=== PATIENT | female | born 1975 | race Caucasian/White ===

== ENCOUNTER 2017-08-16 10:52 | Emergency (ER) | payer BC ==
[2017-08-16] MEDS ORDERED: NAPROXEN 250 MG TABLET PO ONE (11:31)
--- NOTE | 2017-08-16 11:35 | ER Document Report ---
ED General - General Chief Complaint: Rib Pain Stated Complaint: RIGHT SIDE PAIN Time Seen by Provider: 08/16/17 11:28 Notes: The patient is a 41-year-old female, no past medical history, presents with 9 days of right lateral chest pain that is worse when she takes deep breaths and when she presses on the right lateral side of her chest. Patient denies hemoptysis, OCP use, leg swelling, nausea, vomiting, cough, back pain, rib injury or fall. TRAVEL OUTSIDE OF THE [place] IN LAST 30 DAYS: No - Related Data Allergies/Adverse Reactions: No Known Allergies Allergy (Unverified 08/16/17 10:53) Past Medical History - General Information source: Patient - Social History Smoking Status: Current Every Day Smoker Chew tobacco use (# tins/day): No Frequency of alcohol use: None Drug Abuse: None Family History: Reviewed & Not Pertinent Patient has suicidal ideation: No Patient has homicidal ideation: No Renal/ Medical History: Denies: Hx Peritoneal Dialysis Review of Systems - Review of Systems Notes: REVIEW OF SYSTEMS: CONSTITUTIONAL: -fevers, -chills EENT: -eye pain, -difficulty swallowing, -nasal congestion CARDIOVASCULAR: +chest pain, -syncope. RESPIRATORY: -cough, -SOB GASTROINTESTINAL: -abdominal pain, -nausea, -vomiting, -diarrhea GENITOURINARY: -dysuria, -hematuria MUSCULOSKELETAL: -back pain, -neck pain SKIN: -rash or skin lesions. HEMATOLOGIC: -easy bruising or bleeding. LYMPHATIC: -swollen, enlarged glands. NEUROLOGICAL: -altered mental status or loss of consciousness, -headache, - neurologic symptoms PSYCHIATRIC: -anxiety, -depression. ALL OTHER SYSTEMS REVIEWED AND NEGATIVE. Physical Exam - Vital signs Vitals: Temp Pulse Resp BP Pulse Ox 98.9 F 111 H 13 140/88 H 99 08/16/17 10:56 08/16/17 10:56 08/16/17 10:56 08/16/17 10:56 08/16/17 10:56 - Notes Notes: PHYSICAL EXAMINATION: GENERAL: Well-appearing, well-nourished and in no acute distress. HEAD: Atraumatic, normocephalic. EYES: Pupils equal round and reactive to light, extraocular movements intact, sclera anicteric, conjunctiva are normal. ENT: nares patent, oropharynx clear without exudates. Moist mucous membranes. NECK: Normal range of motion, supple without lymphadenopathy LUNGS: No breath sounds in right upper lobe. No respiratory distress. HEART: Regular rhythm, tachycardia. CHEST WALL: Tenderness over right lateral lower ribs, no step-offs or deformities ABDOMEN: Soft, nontender, normoactive bowel sounds. No guarding, no rebound. No masses appreciated. EXTREMITIES: Normal range of motion, no pitting or edema. No cyanosis. NEUROLOGICAL: Cranial nerves grossly intact. Normal speech, normal gait. Normal sensory and motor exams. PSYCH: Normal mood, normal affect. SKIN: Warm, Dry, normal turgor, no rashes or lesions noted. Course - Re-evaluation Re-evalutation: Patient is low risk for PE, but unable to PERC out due to her tachycardia. Will send d-dimer. D-dimer elevated and large right upper lung mass on CXR. CTA ordered. 08/16/17 13:25 Patient with a lung abscess or necrotic neoplasm on CTA Chest. Suspect a neoplasm with her smoking history and absence of fevers or leukocytosis. Pt will be moved to the main ER from [facility] for further evaluation and treatment. I have greeted and performed a rapid initial assessment of this patient. A comprehensive ED assessment and evaluation of the patient, analysis of test results and completion of the medical decision making process will be conducted by additional ED providers. - Vital Signs Vital signs: Temp Pulse Resp BP Pulse Ox 98.9 F 111 H 13 140/88 H 99 08/16/17 10:56 08/16/17 10:56 08/16/17 10:56 08/16/17 10:56 08/16/17 10:56 - Laboratory Result Diagrams: 08/16/17 11:45 08/16/17 11:45 Laboratory results interpreted by me: 08/16/17 08/16/17 08/16/17 11:45 11:45 11:45 Hgb 9.6 L Hct 30.3 L MCV 70 L MCH 22.0 L MCHC 31.5 L RDW 19.9 H Plt Count 620 H D-Dimer 2.00 H Sodium 145.2 H Total Bilirubin < 0.1 L AST 11 L - Diagnostic Test Radiology reviewed: Image reviewed, Reports reviewed Radiology results interpreted by me: CTA Chest: Large right hilar mass as noted above with mediastinal and subcarinal extension. There is atelectasis of right upper lobe. A 1.8 cm in diameter relative low density area is identified within the airspace consolidation in the right upper lobe which could be related to a lung abscess or necrotic lung neoplasm. A small right pleural effusion is identified. Hepatic and right adrenal metastatic disease as noted above. Other findings as noted above.
[2017-08-16 12:01] LABS: ABSOLUTE BASOPHILS # (AUTO) 0.1 10^3/uL (0.0-0.2); ABSOLUTE EOSINOPHILS # (AUTO) 0.2 10^3/uL (0.0-0.6); ABSOLUTE LYMPHOCYTES (AUTO) 1.9 10^3/uL (0.5-4.7); ABSOLUTE MONOCYTES (AUTO) 0.4 10^3/uL (0.1-1.4); ABSOLUTE NEUT (AUTO) 4.7 10^3/uL (1.7-8.2); BASOPHILS % (AUTO) 1.7 % (0-2); EOSINOPHILS % (AUTO) 2.9 % (0-6); HEMATOCRIT 30.3 % (36.0-47.0); HEMOGLOBIN 9.6 g/dL (12.0-15.5); LYMPHOCYTES % (AUTO) 25.8 % (13-45); MEAN CORPUSCULAR HGB CONC 31.5 g/dL (32.0-36.0); MEAN CORPUSCULAR VOLUME 70 fl (80-97); MONOCYTES % (AUTO) 5.8 % (3-13); PLATELET COUNT 620 10^3/uL (150-450); RED BLOOD COUNT 4.34 10^6/uL (3.72-5.28); RED CELL DISTRIBUTION WIDTH 19.9 % (11.5-14.0); SEGMENTED NEUTROPHILS % (AUTO) 63.8 % (42-78); TOTAL CELLS COUNTED % (AUTO) 100 %; WHITE BLOOD COUNT 7.4 10^3/uL (4.0-10.5)
[2017-08-16 12:20] LABS: ALANINE AMINOTRANSFERASE 15 U/L (9-52); ALBUMIN 3.5 g/dL (3.5-5.0); ALKALINE PHOSPHATASE 109 U/L (38-126); ANION GAP 13 (5-19); ASPARTATE AMINO TRANSFERASE 11 U/L (14-36); BLOOD UREA NITROGEN 12 mg/dL (7-20); CALCIUM 9.2 mg/dL (8.4-10.2); CARBON DIOXIDE 26 mmol/L (22-30); CHLORIDE 106 mmol/L (98-107); GLUCOSE 99 mg/dL (75-110); POTASSIUM 3.8 mmol/L (3.6-5.0); SODIUM 145.2 mmol/L (137-145); TOTAL PROTEIN 6.6 g/dL (6.3-8.2)
[2017-08-16 12:21] LABS: BILIRUBIN,TOTAL < 0.1 mg/dL (0.2-1.3)
--- NOTE | 2017-08-16 12:39 | RADIOLOGY REPORT (SQ) ---
EXAM DESCRIPTION: RIBS RIGHT W/PA CHEST COMPLETED DATE/TIME: 08/16/2017 12:17 pm REASON FOR STUDY: right rib tenderness COMPARISON: None. TECHNIQUE: Frontal view of the chest and additional views of the right ribs acquired. NUMBER OF VIEWS: PA chest, right rib detail three views LIMITATIONS: None. FINDINGS: PA chest film shows volume loss and consolidation throughout the right upper lobe with guerrero vation of the right minor fissure. There is fullness in the right upper hilum, worrisome for mass. Follow-up CT chest with IV contrast recommended. Remainder of the lungs are well inflated and free of focal infiltrates. No pleural effusion. No pne umothorax. Cardiac silhouette size, left hilum unremarkable. PA chest film and right rib detail films demonstrate no acute fractures of the right ribs or thoracic spine. No gross lytic or blastic lesions. IMPRESSION: Collapse and consolidation right upper lobe worrisome for obstructive right hilar or end obronchial mass. No right-sided rib fractures COMMENT: SITE OF TRAUMA/COMPLAINT MARKED/STAMP COMPLETED: Yes TECHNICAL DOCUMENTATION: JOB ID: [id number] [employer]- All Rights Reserved Reading location - IP/workstation name: [email or web address]
--- NOTE | 2017-08-16 13:15 | RADIOLOGY REPORT (SQ) ---
EXAM DESCRIPTION: CTA CHEST COMPLETED DATE/TIME: 08/16/2017 12:42 pm REASON FOR STUDY: SOB, tachycardia, elevated d-dimer, abnormal x-ray COMPARISON: Chest and right ribs dated 08/16/2017 TECHNIQUE: CT scan of the chest performed using helical scanning technique with dynamic intravenous contrast injection. Images reviewed with lung, soft tissue and bone windows. Reconstructed coronal and sagittal MPR images reviewed. Additional 3 dimensional post-processing performed to develop Maximal Intensity Projection images (IL P). All images stored on PACS. All CT scanners at this facility use dose modulation, iterative reconstruction, and/or weight based d osing when appropriate to reduce radiation dose to as low as reasonably achievable (ALARA). [facility]: Dose Right [facility]: CareDose [facility]: Dose Right [facility]: Teradose 4D [facility]: 24x7 Learning CONTRAST TYPE AND DOSE: contrast/concentration: Isovue 370.00 mg/ml; Total Contrast Delivered: 61.0 ml; Total Saline Delivered: 63.0 ml Contrast bolus optimized for the pulmonary arteries. Not diagnostic for the aorta. RENAL FUNCTION: None required. The patient is less than 50 years old. RADIATION DOSE: CT Rad equipment meets quality standard of care and radiation dose reduction techniq ues were employed. CTDIvol: 14.3 - 16.5 mGy. DLP: 578 mGy-cm. . LIMITATIONS: None. FINDINGS: LUNGS AND PLEURA: There is airspace consolidation in the right upper lobe most consistent with atelectasis of the right upper lobe related to a central obstructing mass. There is a 1.8 cm in diameter relative low density area within the airspace consolidation which could be related to a ann marie g abscess or necrotic lung neoplasm. A small right pleural effusion is identified. The left lung is clear and well expanded. AORTA AND GREAT VESSELS: No aneurysm. Contrast bolus not optimized for the aorta. HEART: No pericardial effusion. No significant coronary artery calcifications. PULMONARY ARTERIES: No emboli visualized in the main pulmonary arteries or the segmental branches. HILAR AND MEDIASTINAL STRUCTURES: A large right hilar mass is identified with loss of definition of t he right upper lobe bronchus consistent with extrinsic compression or invasion of the right upper lob e bronchus. There is constriction of the right main pulmonary artery consistent with extrinsic compr ession or invasion. The mass extends medially into the mediastinum and subcarinal region. HARDWARE: None in the chest. UPPER ABDOMEN: There is a large heterogeneous mass measuring 3.4 x 4.2 cm in diameters inseparable fr om the medial border of the right lobe of the liver in the expected position of the right adrenal gla nd presumably related to adrenal metastatic disease. There is some prominence of the left adrenal gl and. At least 2 somewhat ill-defined relative low density masses are identified in the right lobe of the liver with the largest measuring 3 cm in diameters consistent with metastatic disease. Couple s mall hepatic cysts are identified. THYROID AND OTHER SOFT TISSUES: No masses. No adenopathy. BONES: No acute or significant finding. 3D MIPS: Confirm above findings. OTHER: No other significant finding. IMPRESSION: Large right hilar mass as noted above with mediastinal and subcarinal extension. There is atelectasis of right upper lobe. A 1.8 cm in diameter relative low density area is identified wit hin the airspace consolidation in the right upper lobe which could be related to a lung abscess or ne crotic lung neoplasm. A small right pleural effusion is identified. Hepatic and right adrenal metas tatic disease as noted above. Other findings as noted above. COMMENT: Quality ID # [id number]: Final reports with documentation of one or more dose reduction techniques (e.g., Automated exposure control, adjustment of the mA and/or kV according to patient size, use of iterative reconstruction technique) TECHNICAL DOCUMENTATION: JOB ID: [id number] [employer]- All Rights Reserved Reading location - IP/workstation name: [email or web address]
[2017-08-16] MEDS ORDERED: CLINDAMYCIN 600 MG/D5W RTU 600 MG/50 ML RTUPB IV ONE (13:29)
[2017-08-16] MEDS ORDERED: PIPERACILLIN/TAZOBACTAM 3.375 GM VIAL IV ONE (13:54)
--- NOTE | 2017-08-16 14:00 | ER Document Report ---
ED Respiratory Problem - General Chief Complaint: Rib Pain Stated Complaint: RIGHT SIDE PAIN Time Seen by Provider: 08/16/17 11:28 Notes: 41-year-old female, no past medical history, presents with 9 days of right lateral chest pain that is worse when she takes deep breaths and when she presses on the right lateral side of her chest. Patient denies hemoptysis, OCP use, leg swelling, nausea, vomiting, cough, back pain, rib injury or fall. Patient denies any gland swelling night sweats or hemoptysis. Denies calf pain or leg swelling. Patient describes the pain is sharp and achy in the right side of her chest. She has never had this before. She is been a smoker almost a pack a day for the last 15 years. TRAVEL OUTSIDE OF THE [place] IN LAST 30 DAYS: No - Related Data Allergies/Adverse Reactions: No Known Allergies Allergy (Unverified 08/16/17 10:53) Past Medical History - General Information source: Patient - Social History Smoking Status: Current Every Day Smoker Chew tobacco use (# tins/day): No Frequency of alcohol use: None Drug Abuse: None Family History: Reviewed & Not Pertinent Patient has suicidal ideation: No Patient has homicidal ideation: No Renal/ Medical History: Denies: Hx Peritoneal Dialysis Review of Systems - Review of Systems Constitutional: Fever. denies: Chills, Diaphoresis Cardiovascular: Chest pain Respiratory: Cough, Hurts to breathe, Short of breath -: Yes All other systems reviewed and negative Physical Exam - Vital signs Vitals: Temp Pulse Resp BP Pulse Ox 98.9 F 111 H 13 140/88 H 99 08/16/17 10:56 08/16/17 10:56 08/16/17 10:56 08/16/17 10:56 08/16/17 10:56 - Notes Notes: GENERAL_APPEARANCE: well_nourished, alert, appears uncomfortable VITALS: reviewed, see vital signs table. HEAD: no_swelling\tenderness on the head. EYES: PERRL, EOMI, conjunctiva_clear. NOSE: no_nasal_discharge. MOUTH: (-)decreased moisture. THROAT: no_throat_inflammation, no_airway_obstruction. no_lymphadenopathy NECK: supple, no_neck_tenderness, (-)thyromegaly. BACK: no_back_tenderness. CHEST_WALL: no_chest_tenderness. LUNGS: no_wheezing, no_rales, no_rhonchi, (-)accessory muscle use, good air exchange bilateral. There is a fine crackles right upper lobe HEART: normal_rate, normal_rhythm, normal_S1, normal_S2, (-)S3, (-)S4, no_ murmur, no_rub. ABDOMEN: soft, no_abd_tenderness, (-)guarding, (-)rebound, no_organomegaly, no _abd_masses. EXTREMITIES: good pulses in all_extremities, no_swelling\tenderness in the extremities, no_edema. SKIN: warm, dry, good_color, no_rash. MENTAL_STATUS: speech_clear, oriented_X_3, normal_affect, responds_ appropriately to questions. NEURO: Neg Motor or Sensory Deficits on exam, CN 2-12 intact, DTR 2+ symmetric x 4, No cerbellar signs Course - Re-evaluation Re-evalutation: 08/16/17 13:59 41-year-old female who comes in complaining of right-sided chest discomfort. CT scan shows what looks to be either a large neoplasm or obstructive pneumonia or lung abscess. We do not have cardiothoracic surgery here. I gave the patient choice of going to [place], [place] or [place]. She is opted to go to [place] I will contact [facility]. 08/16/17 14:[address] Karthik York journal entry audit clerk at [facility]. They do not have any beds available at this time. However Dr. York can see the patient in the pulmonology lab to do a bronchoscopy tomorrow. I spoke with the patient about this she does have transportation. The patient has no oxygen requirements no tachypnea no significant work of breathing. She is stable for discharge and can go to [facility] tomorrow morning to the pulmonology lab. There are no beds available and she would sit in the ER for probably 2 or 3 days before a bed would become available. I think this is the most expeditious way. 08/16/17 15:32 Spoke with Joi for scheduling. Her number is [phone]. She has spoke with the patient. The patient will have a 9:00 appointment tomorrow morning in [place] for a bronchoscopy. Will be discharged home tonight. Nothing by mouth after midnight. Will prescribe something for pain no antibiotic prescription still seen by . tomorrow patient is agreeable to this and has transportation to make the appointment. - Vital Signs Vital signs: Temp Pulse Resp BP Pulse Ox 98.9 F 114 H 18 140/92 H 100 08/16/17 10:56 08/16/17 14:22 08/16/17 14:22 08/16/17 14:22 08/16/17 14:22 - Laboratory Result Diagrams: 08/16/17 11:45 08/16/17 11:45 Laboratory results interpreted by me: 08/16/17 08/16/17 08/16/17 11:45 11:45 11:45 Hgb 9.6 L Hct 30.3 L MCV 70 L MCH 22.0 L MCHC 31.5 L RDW 19.9 H Plt Count 620 H D-Dimer 2.00 H Sodium 145.2 H Total Bilirubin < 0.1 L AST 11 L - Diagnostic Test Radiology results interpreted by me: 08/16/17 13:59 Ribs w/Chest X-Ray 08/16/17 11:31 IMPRESSION: Collapse and consolidation right upper lobe worrisome for obstructive right hilar or endobronchial mass. No right-sided rib fractures Chest/Abdomen CTA 08/16/17 12:16 IMPRESSION: Large right hilar mass as noted above with mediastinal and subcarinal extension. There is atelectasis of right upper lobe. A 1.8 cm in diameter relative low density area is identified within the airspace consolidation in the right upper lobe which could be related to a lung abscess or necrotic lung neoplasm. A small right pleural effusion is identified. Hepatic and right adrenal metastatic disease as noted above. Other findings as noted above. - EKG Interpretation by Vt EKG shows normal: Sinus rhythm Rate: Tachycardia Additional EKG results interpreted by me: 08/16/17 13:59 Sinus tachycardia 102 no old EKG available Discharge - Discharge Clinical Impression: Pulmonary mass Condition: Good Disposition: HOME, SELF-CARE Instructions: Growth or Mass, Pending Workup (OM) Additional Instructions: Please go to [facility] outpatient admissions tomorrow morning for a 9 AM appointment. Jaimiesa - [phone] Procedure: Bronchoscopy -- Physician performing Dr. Karthik Bowling Nothing by mouth after midnight. Have a backhaul driver to take you to [place] Prescriptions: Oxycodone HCl/Acetaminophen [Percocet 5-325 mg Tablet] 1 - 2 tab PO Q4H PRN #15 tablet PRN Reason:
--- NOTE | 2017-08-16 14:28 | EKG REPORT ---
SEVERITY:- ABNORMAL ECG - SINUS TACHYCARDIA LEFT ATRIAL ABNORMALITY : Confirmed by: Olga Augustine 16-Aug-2017 14:26:41
[2017-08-16 17:38] VITALS: BP 129/92
== END 2017-08-16 17:37 | disposition home or self-care (01) ==
LOC: ER 10:52
DX: R91.8 Other nonspecific abnormal finding of lung field (principal); R07.81 Pleurodynia; J98.11 Atelectasis; R00.0 Tachycardia, unspecified; F17.200 Nicotine dependence, unspecified, uncomplicated; R50.9 Fever, unspecified; R06.02 Shortness of breath; J90 Pleural effusion, not elsewhere classified
CPT/HCPCS: 93005; 99284; 96365; 96367; 36415; 84703; 85025; 80053; 85379; 71101; 71275; 93010; J2543

== ENCOUNTER 2017-08-22 23:00 | Emergency (ER) | payer BC ==
[2017-08-22 23:17] VITALS: BP 131/66
--- NOTE | 2017-08-23 00:36 | ER Document Report ---
HPI - HPI Pain Level: 4 Notes: Patient is a 41-year-old female with a history of lung cancer and beginning chemotherapy tomorrow who presents to the ED complaining of left shoulder pain that will radiate down into her left arm. Patient states that her symptoms started 5 days ago after she woke from anesthesia for a lung biopsy. Patient states that she has not had any trouble breathing or chest pains. Patient has noted that pressure in the left shoulder area will exacerbate her symptoms. She is otherwise eating and drinking without difficulties. She is urinating normally and having normal bowel movements. She has no other concerns or complaints at this time. Denies any headache, fever, neck pain, URI, sore throat, chest pain, palpitations, syncope, cough, shortness of breath, wheeze, dyspnea, abdominal pain, nausea/vomiting/diarrhea, urinary retention, dysuria, hematuria, loss of control of bowel or bladder, numbness/tingling, saddle anesthesia, muscle paralysis/weakness, or rash. - ROS Systems Reviewed and Negative: Yes All other systems reviewed and negative - MUSCULOSKELETAL Musculoskeletal: REPORTS: Extremity pain - ARM PAIN Past Medical History - Social History Smoking Status: Unknown if Ever Smoked Family History: Reviewed & Not Pertinent Patient has suicidal ideation: No Patient has homicidal ideation: No Renal/ Medical History: Denies: Hx Peritoneal Dialysis Vertical Provider Document - CONSTITUTIONAL Agree With Documented VS: Yes Notes: PHYSICAL EXAMINATION: GENERAL: No acute distress. Appears frail. HEAD: Atraumatic, normocephalic. EYES: Pupils equal round and reactive to light, extraocular movements intact, sclera anicteric, conjunctiva are normal. ENT: Nares patent and without discharge. oropharynx clear without exudates. No tonsilar hypertrophy or erythema. Moist mucous membranes. NECK: Normal range of motion, supple without lymphadenopathy. Non-tender. Spurling negative. LUNGS: Breath sounds clear to auscultation bilaterally and equal. No wheezes rales or rhonchi. HEART: Regular rate and rhythm without murmurs, rubs, gallops. Musculoskeletal: Left shoulder: FROM to passive/active. Strength 5+/5. + tenderness to the anterior shoulder, correlates with pain described. RC intact. No deformity, swelling, or ecchymosis noted. N/v intact distal. Extremities: No cyanosis, clubbing, or edema b/l. Peripheral pulses 2+. Capillary refill less than 3 seconds. Ankush neg b/l. NEUROLOGICAL: Normal speech, normal gait. Normal sensory, motor exams PSYCH: Normal mood, normal affect. SKIN: Warm, Dry, normal turgor, no rashes or lesions noted. - INFECTION CONTROL TRAVEL OUTSIDE OF THE [place] IN LAST 30 DAYS: No Course - Re-evaluation Re-evalutation: 08/23/17 00:[address] Hernandez. We will obtain a CXR at this time. Pt has reproducible left shoulder pain on exam. EKG unremarkable. Pt has no tachycardia, tachypnea, or hypoxia. She has no cardiopulmonary symptoms otherwise. Ankush neg b/l. 08/23/17 02:08 Patient is afebrile, well-hydrated, 41-year-old female who presents to the ED with left arm pain, nonspecific. Vitals are acceptable. PE is otherwise unremarkable for vascular compromise, obvious tendon/ligament rupture, obvious fracture/dislocation, septic joint. Chest x-ray was unremarkable for any pneumothorax status post procedure. Tylenol given p.o. today. I will send her home with a [employer] dispense pack. Conservative measures otherwise for symptoms. Recheck with your PCM in 2-3 days. Consider consult with orthopedics. Return to the ED with any worsening/concerning symptoms otherwise as reviewed discharge. Patient is in agreement. Dr. Hernandez also reviewed CXR due to orthopedic technician issues who is in agreement with dispo/plan. - Vital Signs Vital signs: Temp Pulse Resp BP Pulse Ox 98.4 F 93 20 131/66 H 99 08/22/17 23:16 08/22/17 23:16 08/22/17 23:16 08/22/17 23:16 08/22/17 23:16 Discharge - Discharge Clinical Impression: Left arm pain Condition: Stable Disposition: HOME, SELF-CARE Instructions: Arm Pain, Nonspecific ([facility]) Additional Instructions: Rest, Ice Tylenol/ibuprofen as needed Light stretches daily Strength exercises as able Moist heat and massage may help F/u with your PCP in 2-3 days for a recheck Consider consult(s) with Orthopedics/physical therapy for ongoing/worsening symptoms Return to the ED with any worsening symptoms and/or development of fever, headache, chest pain, palpitations, syncope, shortness of breath, trouble breathing, abdominal pain, n/v/d, muscle weakness/paralysis, numbness/tingling, swelling, redness, or other worsening symptoms that are concerning to you. Referrals: [facility] [Provider Group] - Follow up as needed
[2017-08-23] MEDS ORDERED: ACETAMINOPHEN 325 MG TABLET PO ONE (01:28)
[2017-08-23] MEDS ORDERED: HYDROCODONE/ACETAMINOPHEN 5-325 MG (6 TAB/ER DISP) PO PRN (02:11)
--- NOTE | 2017-08-23 03:27 | RADIOLOGY REPORT (SQ) ---
EXAM DESCRIPTION: CHEST 2 VIEWS COMPLETED DATE/TIME: 08/23/2017 12:54 am REASON FOR STUDY: left arm pain, recent lung biopsy COMPARISON: None. EXAM PARAMETERS: NUMBER OF VIEWS: two views TECHNIQUE: Digital Frontal and Lateral radiographic views of the chest acquired. RADIATION DOSE: NA LIMITATIONS: none FINDINGS: LUNGS AND PLEURA: Persistent right upper lobe collapse. Left lung is clear. MEDIASTINUM AND HILAR STRUCTURES: No masses or contour abnormalities. HEART AND VASCULAR STRUCTURES: Heart normal size. No evidence for failure. BONES: No acute findings. HARDWARE: None in the chest. OTHER: No other significant finding. IMPRESSION: Persistent right upper lobe collapse. Left lung is clear. TECHNICAL DOCUMENTATION: JOB ID: [id number] [employer]- All Rights Reserved Reading location - IP/workstation name: [email or web address]
--- NOTE | 2017-08-23 07:18 | EKG REPORT ---
SEVERITY:- BORDERLINE ECG - SINUS RHYTHM PROBABLE LEFT ATRIAL ABNORMALITY : Confirmed by: Kavon Magaña MD 23-Aug-2017 07:17:50
== END 2017-08-23 02:24 | disposition home or self-care (01) ==
LOC: ER 23:00
DX: M79.602 Pain in left arm (principal); M25.512 Pain in left shoulder; C34.90 Malignant neoplasm of unspecified part of unspecified bronchus or lung; Z98.890 Other specified postprocedural states
CPT/HCPCS: 71046; 93005; 93010; 99283

== ENCOUNTER 2017-10-28 10:47 | Emergency (ER) | payer BC, MEDICAID ==
--- NOTE | 2017-10-28 11:28 | ER Document Report ---
ED Medical Screen (RME) - General Chief Complaint: Altered Mental Status Stated Complaint: WEAKNESS Time Seen by Provider: 10/28/17 11:24 Mode of Arrival: Wheelchair Information source: Patient, Relative TRAVEL OUTSIDE OF THE [place]. IN LAST 30 DAYS: No - HPI Patient complains to provider of: altered MS Onset: Yesterday - pt with h/o lung ca receiving chemo. with decreased LOC yesterday and worsening today. - Related Data Allergies/Adverse Reactions: No Known Allergies Allergy (Verified 10/28/17 10:48) Past Medical History - Social History Chew tobacco use (# tins/day): No Frequency of alcohol use: None Drug Abuse: Marijuana Renal/ Medical History: Denies: Hx Peritoneal Dialysis Physical Exam - Vital signs Vitals: Temp Pulse Resp BP Pulse Ox 99.3 F 100 20 121/84 97 10/28/17 10:54 10/28/17 10:54 10/28/17 10:54 10/28/17 10:54 10/28/17 10:54 Course - Vital Signs Vital signs: Temp Pulse Resp BP Pulse Ox 99.3 F 100 20 121/84 97 10/28/17 10:54 10/28/17 10:54 10/28/17 10:54 10/28/17 10:54 10/28/17 10:54
--- NOTE | 2017-10-28 11:55 | RADIOLOGY REPORT (SQ) ---
EXAM DESCRIPTION: CT HEAD WITHOUT COMPLETED DATE/TIME: 10/28/2017 11:40 am REASON FOR STUDY: altered MS COMPARISON: None. TECHNIQUE: Axial images acquired through the brain without intravenous contrast. Images reviewed wi th bone, brain and subdural windows. Additional sagittal and coronal reconstructions were generated. Images stored on PACS. All CT scanners at this facility use dose modulation, iterative reconstruction, and/or weight based d osing when appropriate to reduce radiation dose to as low as reasonably achievable (ALARA). [facility]: Dose Right [facility]: CareDose [facility]: Dose Right [facility]: Teradose 4D [facility]: [employer] RADIATION DOSE: CT Rad equipment meets quality standard of care and radiation dose reduction techniq ues were employed. CTDIvol: 48.6 mGy. DLP: 1051 mGy-cm. mGy. LIMITATIONS: None. FINDINGS: VENTRICLES: There is impingement and displacement of the frontal horn of the left lateral ventricle related to the large mass in the left frontal lobe. CEREBRUM: A somewhat lobulated mass is identified in the left frontal lobe measuring 4.7 x 3.1 cm in diameters with surrounding vasogenic edema. Mass effect is seen with impingement on the frontal horn of the left lateral ventricle and some minimal shift of the midline structures from left or right an teriorly. There is effacement of the adjacent cortical sulci in the left frontal lobe. In light of the findings on the recent chest CT scan, this presumably is related to metastatic disease although a primary brain neoplasm cannot be completely excluded. A follow-up brain CT scan with IV contrast or MRI may be of value for further evaluation. No evidence for acute infarction. CEREBELLUM: No masses. No hemorrhage. No alteration of density. No evidence for acute infarction. EXTRAAXIAL SPACES: No fluid collections. No masses. ORBITS AND GLOBE: No intra- or extraconal masses. Normal contour of globe without masses. CALVARIUM: No fracture. PARANASAL SINUSES: No fluid or mucosal thickening. SOFT TISSUES: No mass or hematoma. OTHER: No other significant finding. IMPRESSION: Large lobulated mass in the left frontal lobe as noted above with surrounding vasogenic edema. Mass effect is identified as noted above. This presumably is related to metastatic disease a lthough the possibility of a primary brain neoplasm cannot be completely excluded. A followup brain CT scan with IV contrast or MRI may be of value for further evaluation. Other findings as noted abov e EVIDENCE OF ACUTE STROKE: NO. COMMENT: Quality ID # [id number]: Final reports with documentation of one or more dose reduction techniques (e.g., Automated exposure control, adjustment of the mA and/or kV according to patient size, use of iterative reconstruction technique) TECHNICAL DOCUMENTATION: JOB ID: [id number] [employer]- All Rights Reserved Reading location - IP/workstation name: [email or web address] [id number]
[2017-10-28] MEDS ORDERED: DEXAMETHASONE SOD PHOS INJ 10 MG/1 ML VIAL IV ONE (12:14)
--- NOTE | 2017-10-28 12:20 | ER Document Report ---
ED General <ANDI RUSSELL - Last Filed: 10/28/17 15:53> - General Mode of Arrival: Wheelchair Information source: Relative TRAVEL OUTSIDE OF THE [place] IN LAST 30 DAYS: No <MELLISSA KOENIG - Last Filed: 10/28/17 17:05> - General Chief Complaint: Altered Mental Status Stated Complaint: WEAKNESS Time Seen by Provider: 10/28/17 11:24 Notes: Patient is a 41 year old female with lung cancer with metastases to the brain presents to the emergency department accompanied by daughter and complaining of altered mental status onset last night. Daughter states the patient became confused and weak last night further stating the patient would not talk to her. She states this morning the patient also barely ate further stating she had a small amount of biscuits and gravy. At bedside when asked how the patient feels she states "fine" and asked if she was hungry she shakes her head no. Daughter states the patient started IV chemo 2 months ago and is currently taking Decadron and Percocet. Patient's oncologist is Dr. Ari Napoles located at [facility] in [place]. Nurse reports the patient later told her she fell in the shower this morning prior to arrival. (MELLISSA KOENIG) - Related Data Allergies/Adverse Reactions: No Known Allergies Allergy (Verified 10/28/17 10:48) Past Medical History - General Information source: Patient, Relative - Social History Smoking Status: Current Every Day Smoker Chew tobacco use (# tins/day): No Frequency of alcohol use: None Drug Abuse: Marijuana Family History: Reviewed & Not Pertinent Patient has suicidal ideation: No Patient has homicidal ideation: No <MELLISSA KOENIG - Last Filed: 10/28/17 17:05> Review of Systems - Review of Systems Constitutional: No symptoms reported EENT: No symptoms reported Cardiovascular: No symptoms reported Respiratory: No symptoms reported Gastrointestinal: No symptoms reported Genitourinary: No symptoms reported Female Genitourinary: No symptoms reported Musculoskeletal: No symptoms reported Skin: No symptoms reported Hematologic/Lymphatic: No symptoms reported Neurological/Psychological: See HPI, Confusion, Weakness -: Yes All other systems reviewed and negative <MELLISSA KOENIG - Last Filed: 10/28/17 17:05> Physical Exam - General General appearance: Other - [place]. Does not speak during exam. Will respond to her name being called. - HEENT Head: Normocephalic, Atraumatic Eyes: Normal Conjunctiva: Normal Extraocular movements intact: Yes Pupils: PERRL Neck: Normal - Respiratory Respiratory status: No respiratory distress Chest status: Nontender Breath sounds: Normal Chest palpation: Normal - Cardiovascular Rhythm: Regular Heart sounds: Normal auscultation Murmur: No Friction rub: No Gallop: None auscultated - Abdominal Inspection: Normal Distension: No distension Bowel sounds: Normal Tenderness: Nontender Organomegaly: No organomegaly - Back Back: Normal - Extremities General upper extremity: Normal ROM General lower extremity: Normal ROM - Neurological Neuro grossly intact: Yes Cognition: Confused - [place], does not respond to questions until I call her name. Abdiarshid Coma Scale Eye Opening: Spontaneous Abdirashid Coma Scale Motor: Obeys Commands - Psychological Associated symptoms: Confused - Appears confused. - Skin Skin Temperature: Warm Skin Moisture: Dry Skin Color: Normal <MELLISSA KOENIG - Last Filed: 10/28/17 17:05> - Vital signs Vitals: Temp Pulse Resp BP Pulse Ox 99.3 F 100 20 121/84 97 10/28/17 10:54 10/28/17 10:54 10/28/17 10:54 10/28/17 10:54 10/28/17 10:54 Course - Laboratory Result Diagrams: 10/28/17 12:00 10/28/17 12:00 - Diagnostic Test Radiology reviewed: Reports reviewed - Large left frontal mass with vasogenic edema and pressure on surrounding structures - EKG Interpretation by Pr EKG shows normal: Sinus rhythm, [place], Intervals, QRS Complexes. abnormal: ST-T Waves - Anterolateral T abnormalities Rate: Normal - 97 P Waves: LAE Heart block present: 1st Degree - Consults Dr. Ari Napoles Time consulted: 13:25 Consulted provider: other - We will accept in transfer to [facility] <ANDI RUSSELL - Last Filed: 10/28/17 15:53> - Laboratory Result Diagrams: 10/28/17 12:00 10/28/17 12:00 <MELLISSA KOENIG - Last Filed: 10/28/17 17:05> - Re-evaluation Re-evalutation: 10/28/17 13:31 The patient and her scan were discussed with her oncologist at [facility]. He reports that the masses little larger than in August, and that she had improved quite a bit until now and he does have some concerns and would like her transferred to [facility]. 10/28/17 15:53 Transport is here for the patient. She is awake, maintaining her airway, with stable vital signs. She is stable for transport at this time. (ANDI RUSSELL) - Vital Signs Vital signs: Temp Pulse Resp BP Pulse Ox 99.3 F 100 15 115/81 97 10/28/17 10:54 10/28/17 10:54 10/28/17 16:00 10/28/17 15:55 10/28/17 16:00 - Laboratory Laboratory results interpreted by me: 10/28/17 10/28/17 12:00 12:00 WBC 3.3 L Hgb 10.7 L Hct 33.5 L MCV 74 L MCH 23.5 L MCHC 31.9 L RDW 27.3 H Monocytes % 1.7 L Potassium 3.3 L Alkaline Phosphatase 155 H Critical Care Note - Critical Care Note Total time excluding time spent on procedures (mins): 30 <ANDI RUSSELL - Last Filed: 10/28/17 15:53> Discharge <ANDI RUSSELL - Last Filed: 10/28/17 15:53> <MELLISSA KOENIG - Last Filed: 10/28/17 17:05> - Discharge Clinical Impression: Neoplasm of brain causing mass effect on adjacent structures, Lung mass Altered mental status Qualifiers: Altered mental status type: unspecified Qualified Code(s): R41.82 - Altered mental status, unspecified Condition: Fair Disposition: [facility] Scribe Attestation: 10/28/17 13:30 I personally performed the services described in the documentation, reviewed and edited the documentation which was dictated to the scribe in my presence, and it accurately records my words and actions. (ANDI RUSSELL) Scribe Documentation - Scribe Written by Ophelia:: Ophelia Wooten, 10/28/2017 12:23 acting as scribe for :: Mariya <MELLISSA KOENIG - Last Filed: 10/28/17 17:05>
[2017-10-28 12:23] LABS: ABSOLUTE MONOCYTES (AUTO) 0.1 10^3/uL (0.1-1.4); ABSOLUTE NEUT (AUTO) 2.2 10^3/uL (1.7-8.2); BASOPHILS % (AUTO) 0.4 % (0-2); EOSINOPHILS % (AUTO) 0.5 % (0-6); HEMATOCRIT 33.5 % (36.0-47.0); HEMOGLOBIN 10.7 g/dL (12.0-15.5); LYMPHOCYTES % (AUTO) 30.1 % (13-45); MEAN CORPUSCULAR HEMOGLOBIN 23.5 pg (27.0-33.4); MEAN CORPUSCULAR HGB CONC 31.9 g/dL (32.0-36.0); MEAN CORPUSCULAR VOLUME 74 fl (80-97); MONOCYTES % (AUTO) 1.7 % (3-13); PLATELET COUNT 254 10^3/uL (150-450); RED BLOOD COUNT 4.54 10^6/uL (3.72-5.28); RED CELL DISTRIBUTION WIDTH 27.3 % (11.5-14.0); SEGMENTED NEUTROPHILS % (AUTO) 67.3 % (42-78); TOTAL CELLS COUNTED % (AUTO) 100 %; WHITE BLOOD COUNT 3.3 10^3/uL (4.0-10.5)
[2017-10-28 12:42] LABS: ALANINE AMINOTRANSFERASE 23 U/L (9-52); ALBUMIN 3.5 g/dL (3.5-5.0); ALKALINE PHOSPHATASE 155 U/L (38-126); ANION GAP 14 (5-19); ASPARTATE AMINO TRANSFERASE 20 U/L (14-36); BILIRUBIN,DIRECT 0.3 mg/dL (0.0-0.4); BILIRUBIN,TOTAL 0.5 mg/dL (0.2-1.3); BLOOD UREA NITROGEN 18 mg/dL (7-20); CALCIUM 9.4 mg/dL (8.4-10.2); CARBON DIOXIDE 26 mmol/L (22-30); CHLORIDE 102 mmol/L (98-107); GLUCOSE 91 mg/dL (75-110); POTASSIUM 3.3 mmol/L (3.6-5.0); SODIUM 141.6 mmol/L (137-145); TOTAL PROTEIN 6.5 g/dL (6.3-8.2)
[2017-10-28 12:51] LABS: ANISOCYTOSIS 3+; BURR CELLS SLIGHT; HYPOCHROMASIA 1+; OVALOCYTES 1+; PLATELET COMMENT ADEQUATE; POIKILOCYTOSIS 1+
[2017-10-28 16:36] VITALS: BP 115/81
--- NOTE | 2017-10-28 19:38 | EKG REPORT ---
SEVERITY:- ABNORMAL ECG - SINUS RHYTHM FIRST DEGREE AV BLOCK PROBABLE LEFT ATRIAL ABNORMALITY BORDERLINE T ABNORMALITIES, ANT-LAT LEADS : Confirmed by: Roxie Fernandes MD 28-Oct-2017 19:37:01
== END 2017-10-28 16:00 | disposition short-term general hospital (02) ==
LOC: ER 10:47
DX: C34.90 Malignant neoplasm of unspecified part of unspecified bronchus or lung (principal); C79.31 Secondary malignant neoplasm of brain; R41.82 Altered mental status, unspecified; R53.1 Weakness; Z79.899 Other long term (current) drug therapy; F17.200 Nicotine dependence, unspecified, uncomplicated
CPT/HCPCS: 93005; 99291; 96374; 36415; 83735; 85025; 80053; 70450; 93010; J1100